=== PATIENT | female | born 1975 | race Caucasian/White ===

== ENCOUNTER 2016-08-22 11:03 | Emergency (ER) | payer OTHER ==
[2016-08-22] MEDS ORDERED: Sodium Chloride 0.9% 10 ML Syringe FLUSH PRN (11:43)
[2016-08-22] MEDS ORDERED: Ketorolac 60 MG/2 ML SDV IM ONE (11:47)
--- NOTE | 2016-08-22 12:06 | EDM.PDOC ---
ED HPI GENERAL MEDICAL PROBLEM - General Chief Complaint: Upper Extremity Injury/Pain Stated Complaint: LWFT SHOULDER PAIN,SOB Time Seen by Provider: 08/22/16 11:45 Source of Information: Reports: Patient History Limitations: Reports: No Limitations - History of Present Illness INITIAL COMMENTS - FREE TEXT/NARRATIVE: 41-year-old female presents for evaluation and treatment of left shoulder pain. Patient reports that the shoulder pain began last night. Reports that the shoulder pain is made worse with movement of the left arm. She also reports associated symptoms of pain with breathing. Patient denies any trauma to the area. Patient denies any chest pain, shortness breath, nausea, vomiting, abdominal pain, lightheadedness, dizziness or syncope. Patient reports that she is a previous IV drug abuser and would like to avoid using narcotics. 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: Neurological History: Reports: Headaches, Chronic Psychiatric History: Reports: Addiction, Depression Other Psychiatric History: ETOH and IV drug addiction, quit 05/2014 Other Immunologic History: Hepatitis C + - Infectious Disease History Infectious Disease History: Reports: Hepatitis C - Past Surgical History GI Surgical History: Reports: Cholecystectomy Social & Family History - Tobacco Use Smoking Status *Q: Former Smoker Years of Tobacco use: 6 Packs/Tins Daily: 1 Used Tobacco, but Quit: Yes Month Tobacco Last Used: 3 years Second Hand Smoke Exposure: Yes - Caffeine Use Caffeine Use: Reports: Coffee - Alcohol Use Days Per Week of Alcohol Use: 0 Number of Drinks Per Day: 0 Total Drinks Per Week: 0 - Recreational Drug Use Recreational Drug Use: Yes Drug Use in Last 12 Months: No Recreational Drug Type: Reports: Marijuana/Hashish, Methamphetamine Recreational Drug Use Frequency: Not Used In Over 6 Months Recreational Drug Last Use: September 19, 2013 Review of Systems - Review of Systems Review Of Systems: See Below Constitutional: Denies: Fever Respiratory: Reports: Other (dyspnea). Denies: Shortness of Breath Cardiovascular: Denies: Chest Pain, Syncope GI/Abdominal: Denies: Abdominal Pain, Nausea, Vomiting Musculoskeletal: Reports: Shoulder Pain (left) Neurological: Denies: Dizziness, Syncope ED EXAM, GENERAL - Physical Exam Exam: See Below Exam Limited By: No Limitations General Appearance: Alert, WD/WN, Mild Distress, Obese Nose: Normal Inspection Throat/Mouth: Normal Inspection, Normal Voice, No Airway Compromise Neck: Normal Inspection, Non-Tender, Full Range of Motion Respiratory/Chest: No Respiratory Distress, Lungs Clear, Normal Breath Sounds Cardiovascular: Normal Peripheral Pulses, Regular Rate, Rhythm, No Murmur GI/Abdominal: Soft, Non-Tender Extremities: Normal Inspection, Non-Tender (minor tenderness to palpation to the inferior medial left scapula), Limited Range of Motion (pain with extension , forward flexion and abduction of the left shoulder) Neurological: Alert, Oriented, Normal Cognition Psychiatric: Normal Affect, Normal Mood Skin Exam: Warm, Dry, Normal Color EKG INTERPRETATION EKG Date: 08/22/16 Time: 11:10 Rhythm: NSR Rate (Beats/Min): 61 Harvest: Normal P-Wave: Present QRS: Normal ST-T: Normal QT: Normal EKG Interpretation Comments: EKG at 11:08 reviewed by myself and Dr. Jase RILEY at [address] changes. Inverted t waves in V2, V3 and aVL EKg at 11:50 reviewed by myself and Dr. Jase RILEY at [address] changes. Inverted t waves in V2, V3 and aVL Course - Vital Signs Last Recorded V/S: Last Vital Signs Temp 36.7 C 08/22/16 11:07 Pulse 65 08/22/16 11:07 Resp 16 08/22/16 11:07 BP Pulse Ox 100 08/22/16 11:07 - Orders/Labs/Meds Labs: Laboratory Tests 08/22/16 08/22/16 08/22/16 Range/Units 12:20 12:20 12:20 WBC 10.66 H (3.98-10.04) K/mm3 RBC 4.31 (3.98-5.22) M/mm3 Hgb 12.6 (11.2-15.7) gm/L Hct 37.9 (34.1-44.9) % MCV 87.9 (79.4-94.8) fl MCH 29.2 (25.6-32.2) pg MCHC 33.2 (32.2-35.5) g/dl RDW Std Deviation 39.9 (36.4-46.3) fL Plt Count 279 (182-369) K/mm3 MPV 10.6 (9.4-12.3) fl Neut % (Auto) 58.2 (34.0-71.1) % Lymph % (Auto) 29.1 (19.3-51.7) % [place] % (Auto) 10.1 (4.7-12.5) % Eos % (Auto) 2.0 (0.7-5.8) Baso % (Auto) 0.3 (0.1-1.2) % Neut # (Auto) 6.21 H (1.56-6.13) K/mm3 Lymph # (Auto) 3.10 (1.18-3.74) K/mm3 [place] # (Auto) 1.08 H (0.24-0.36) K/mm3 Eos # (Auto) 0.21 (0.04-0.36) K/mm3 Baso # (Auto) 0.03 (0.01-0.08) K/mm3 D-Dimer, Quantitative 0.21 (0.19-0.59) mg/L Sodium 139 (136-145) mEq/L Potassium 3.2 L (3.5-5.1) mEq/L Chloride 105 (98-107) mEq/L Carbon Dioxide 27 (21-32) mEq/L Anion Gap 10.2 (5-15) BUN 12 (7-18) mg/dL Creatinine 0.9 (0.55-1.02) mg/dL Est Cr Clr Drug Dosing 84.66 mL/min Estimated GFR (MDRD) > 60 (>60) mL/min BUN/Creatinine Ratio 13.3 L (14-18) Glucose 118 H (74-106) mg/dL Calcium 8.9 (8.5-10.1) mg/dL Total Bilirubin 0.7 (0.2-1.0) mg/dL AST 18 (15-37) U/L ALT 23 (14-59) U/L Alkaline Phosphatase 72 (46-116) U/L CK-MB (CK-2) 0.9 (0-3.6) ng/ml Troponin I < 0.017 (0.00-0.056) ng/mL C-Reactive Protein 0.4 (<1.0) mg/dL Total Protein 7.2 (6.4-8.2) g/dl Albumin 3.5 (3.4-5.0) g/dl Globulin 3.7 gm/dL Albumin/Globulin Ratio 1.0 (1-2) Lipase 123 (73-393) U/L Meds: Medications Discontinued Medications Generic Name Dose Route Start Last Admin Trade Name Freq PRN Reason Stop Dose Admin Ketorolac Tromethamine 60 mg 08/22/16 11:47 08/22/16 11:53 Toradol IM 08/22/16 11:48 60 mg ONETIME ONE Administration Potassium Chloride 20 meq 08/22/16 13:12 08/22/16 13:21 Klor-Con M20 PO 08/22/16 13:13 20 meq ONETIME ONE Administration Sodium Chloride 10 ml 08/22/16 11:43 Saline Flush FLUSH ASDIRECTED PRN Keep Vein Open - Radiology Interpretation Free Text/Narrative:: chest xray 2 view shows no acute intrathoracic process. Reviewed by myself and Dr. Jase Ortiz. - Re-Assessments/Exams Free Text/Narrative Re-Assessment/Exam: 08/22/16 14:40 Physical exam is consistent with a muscle spasm, however with the dyspnea further work up indicated. Labs included the following: WBC slightly elevated at 10.66, hgb is 12.6 and plts are 279 d dimer within normal limits are 0.21 trop within normal limits at <0.017 CKMB within normal limits at 0.9 CRP is 0.4 lipase is normal at 123 sodium is 139, potassium is 3.2 an chloride is 105. Anion gap is 10.2. Glucose is 118 I reviewed the labs, ekg and imaging with the patient. Good pain relief with the toradol. Will prescribe a muscle relaxer and have close follow-up with PCP. Discharge instructions as documented. Departure - Departure Time of Disposition: 14:44 Disposition: Home, Self-Care 01 Condition: Fair Clinical Impression: Muscle spasm - Discharge Information Prescriptions: Orphenadrine [Norflex] 100 mg PO BID #10 tab.er Instructions: Muscle Cramps and Spasms, [id number] Referrals: Jose Manuel Bryant PA-C [Primary Care Provider] - Forms: ED Department Discharge Additional Instructions: Take the Norflex 1 tab twice a day. This medication is for muscle relaxation. It may make you drowsy so do not drive or operate machinery until you know how this medication will affect you. Utilize moist heat to the area. Recommend doing this for 10-15 minutes 3 or 4 times a day. may also try topical products such as icy hot or BenGay. Recommend [id number] Aleve or ibuprofen for pain relief. Follow-up with your primary care provider this week for recheck. Please return to the ER if your symptoms change or worsen.
[2016-08-22] MEDS ORDERED: Potassium Chloride 20 MEQ Tab.ER PO ONE (13:12)
--- NOTE | 2016-08-23 13:36 | CR ---
Chest: Two views of the chest were obtained. Comparison: No previous chest x-ray. Heart size and mediastinum are normal. Lungs are clear. Minimal scoliosis is noted. Impression: 1. Nothing acute is identified on two-view chest x-ray. Diagnostic code #2
== END 2016-08-22 14:52 | disposition home or self-care (01) ==
LOC: JD.ED 11:03
DX: M62.838 Other muscle spasm (principal); Z90.49 Acquired absence of other specified parts of digestive tract; Z87.891 Personal history of nicotine dependence
CPT/HCPCS: 36415; 71020; 80053; 82553; 83690; 84484; 85025; 85379; 86140; 93005; 96372; 99285; A9270; J1885; 99283

== ENCOUNTER 2018-03-23 13:50 | Emergency (ER) | payer OTHER ==
[2018-03-23 14:45] VITALS: BP 127/92
[2018-03-23] MEDS ORDERED: Amoxicillin/Clavulanate K 875-125 MG Tab PO ONE (15:10)
--- NOTE | 2018-03-23 15:16 | EDM.PDOC ---
ED HPI GENERAL MEDICAL PROBLEM - General Chief Complaint: ENT Problem Stated Complaint: DENTAL COMPLAINT Time Seen by Provider: 03/23/18 14:46 Source of Information: Reports: Patient, RN Notes Reviewed History Limitations: Reports: No Limitations - History of Present Illness INITIAL COMMENTS - FREE TEXT/NARRATIVE: Patient is a 42 year old female who presents to the ED for the evaluation of dental pain. The pain is located in both side of her upper jaw. This pain has been present for around 2 months. She did call a dentist, but they would not be able to see her until after Apr 01, and told her that she needed to be treated with antibiotics before they would do any work. She is still able to eat okay. 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: Neurological History: Reports: Headaches, Chronic, Other (See Below) Other Neuro History: blood clot to head that burst Psychiatric History: Reports: Addiction, Depression Other Psychiatric History: ETOH and IV drug addiction, quit 05/2014 Other Immunologic History: Hepatitis C +-had treatment for it - Infectious Disease History Infectious Disease History: Reports: Hepatitis C - Past Surgical History GI Surgical History: Reports: Cholecystectomy Female Surgical History: Reports: Section Social & Family History - Tobacco Use Smoking Status *Q: Former Smoker Used Tobacco, but Quit: Yes Month/Year Tobacco Last Used: 2014 - Caffeine Use Caffeine Use: Reports: Energy Drinks, Soda, Tea - Recreational Drug Use Recreational Drug Use: Yes Other Recreational Drug Type: clean of drugs almost 4 years ED ROS ENT - Review of Systems Review Of Systems: See Below Constitutional: Denies: Fever, Chills HEENT: Reports: Dental Pain. Denies: Throat Pain, Throat Swelling Respiratory: Reports: No Symptoms Cardiovascular: Reports: No Symptoms Endocrine: Reports: No Symptoms GI/Abdominal: Reports: No Symptoms : Reports: No Symptoms Musculoskeletal: Reports: No Symptoms Skin: Reports: No Symptoms Neurological: Reports: No Symptoms Psychiatric: Reports: No Symptoms Hematologic/Lymphatic: Reports: No Symptoms Immunologic: Reports: No Symptoms ED EXAM, ENT - Physical Exam Exam: See Below Text/Narrative:: exam limited to head, neck, and mouth. Exam Limited By: No Limitations General Appearance: Alert, WD/WN, No Apparent Distress Mouth/Throat: Normal Inspection (dentition in poor repair), Normal Oropharynx, Dental Pain (upper left jaw and upper right jaw. mild erythema noted to both sides of gums.), Dental Tenderness. No: Dental Trauma, Trismus Head: Atraumatic, Normocephalic Neck: Normal Inspection, Supple, Non-Tender, Full Range of Motion. No: Lymphadenopathy (L), Lymphadenopathy (R) Course - Vital Signs Last Recorded V/S: Last Vital Signs Temp 97.3 F 03/23/18 14:42 Pulse 61 03/23/18 14:42 Resp 20 03/23/18 14:42 BP 127/92 H 03/23/18 14:42 Pulse Ox 98 03/23/18 14:42 - Orders/Labs/Meds Orders: Active Orders 24 hr Category Date Time Status Amoxicillin/Clavulanate K [Augmentin 875 MG/125 MG] Med 03/23/18 15:10 Once 1 tab PO ONETIME ONE - Re-Assessments/Exams Free Text/Narrative Re-Assessment/Exam: 03/23/18 15:16 Pt presents to the ED for the evaluation of dental pain. Will give 1 does of augmentin in ED and provide her with a prescription. Will recommend she start probiotic with this. Departure - Departure Time of Disposition: 15:17 Disposition: Home, Self-Care 01 Condition: Fair Clinical Impression: Pain, dental - Discharge Information *PRESCRIPTION DRUG MONITORING PROGRAM REVIEWED*: No *COPY OF PRESCRIPTION DRUG MONITORING REPORT IN PATIENT MICAELA: No Referrals: Jose Manuel Bryant PA-C [Primary Care Provider] - Additional Instructions: You have been evaluated in the ED for your dental pain. Recommend taking ibuprofen at least 600mg every 6 hours as needed for pain relief, or 1-2 tabs of Aleve BID for pain relief. Please take the Augmentin 1 tab twice daily for 7 days or until gone. This antibiotic may cause diarrhea, please start taking a probiotic with this. Please follow up with dentist you consulted for definitive management of your tooth pain. Please return to the ED if your symptoms should change or worsen. - My Orders Last 24 Hours: My Active Orders 03/23/18 15:10 Amoxicillin/Clavulanate K [Augmentin 875 MG/125 MG] 1 tab PO ONETIME ONE - Assessment/Plan Last 24 Hours: My Active Orders 03/23/18 15:10 Amoxicillin/Clavulanate K [Augmentin 875 MG/125 MG] 1 tab PO ONETIME ONE
== END 2018-03-23 15:33 | disposition home or self-care (01) ==
LOC: JD.ED 13:50
DX: K08.89 Other specified disorders of teeth and supporting structures (principal); Z90.49 Acquired absence of other specified parts of digestive tract; Z87.891 Personal history of nicotine dependence
CPT/HCPCS: 99283; A9270

== ENCOUNTER 2018-07-28 15:34 | Emergency (ER) | payer OTHER ==
[2018-07-28] MEDS ORDERED: Sodium Chloride 0.9% 10 ML Syringe FLUSH PRN (16:26)
[2018-07-28] MEDS ORDERED: Sodium Chloride 0.9% 1,000 ML IV ONE (16:26)
--- NOTE | 2018-07-28 16:27 | EDM.PDOC ---
ED HPI GENERAL MEDICAL PROBLEM - General Chief Complaint: Abdominal Pain Stated Complaint: RECTAL BLEEDING Time Seen by Provider: 07/28/18 16:08 Source of Information: Reports: Patient History Limitations: Reports: No Limitations - History of Present Illness INITIAL COMMENTS - FREE TEXT/NARRATIVE: Patient is a 43-year-old female who presents ED complaining of right-sided abdominal cramping with concerns of having blood within her stool. She states today after having a BM with wiping there was blood noted on the toilet paper. Blood was bright red with no clots. Bleeding was minimal. States she is unsure if the blood is from the rectum or vagina. Patient states the crampy sensation is consistent with having her menstrual cycle. Patient states she has irregular menses and does not recall when she last had her menstrual cycle. With application of panty liner there has been no blood present. She states with having a bowel movement there has been some blood within the toilet described as bright red. She has been constipated at times. States the stool is formed and hard with no straining required. There's been no nausea/ vomiting, fever, dysuria, hematuria, abnormal vaginal discharge, history of hemorrhoids/anal fissure, ingestion of bad/questional food, antibiotic use, acid reflux, or any additional complaints. She has no history of EGD or colonoscopy. She denies being . She has no history of upper GI/lower GI bleed. Lower Abdomen Pain Score (Numeric/FACES): 2 Headache Pain Score (Numeric/FACES): 8 - Related Data Allergies Allergy/AdvReac Type Severity Reaction Status Date / Time No Known Allergies Allergy Verified 08/22/16 11:14 Home Meds: Home Meds . 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[employer] SOCI[employer]Y History: Neurological History: Reports: Headaches, Chronic, Other (See Below) Other Neuro History: blood clot to head that burst Psychiatric History: Reports: Addiction, Depression Other Psychiatric History: ETOH and IV drug addiction, quit 05/2014 Other Immunologic History: Hepatitis C +-had treatment for it - Infectious Disease History Infectious Disease History: Reports: Hepatitis C - Past Surgical History GI Surgical History: Reports: Cholecystectomy Female Surgical History: Reports: Section Social & Family History - Tobacco Use Smoking Status *Q: Former Smoker Used Tobacco, but Quit: Yes Month/Year Tobacco Last Used: 4 yr - Caffeine Use Caffeine Use: Reports: Energy Drinks, Soda ED ROS GENERAL - Review of Systems Review Of Systems: ROS reveals no pertinent complaints other than HPI. ED EXAM, GI/ABD - Physical Exam Exam: See Below Exam Limited By: No Limitations General Appearance: Alert, WD/WN, No Apparent Distress Ears: Hearing Grossly Normal Nose: Normal Inspection Throat/Mouth: Normal Inspection, Normal Oropharynx, Normal Voice, No Airway Compromise Head: Atraumatic, Normocephalic Neck: Normal Inspection, Supple, Non-Tender, Full Range of Motion Respiratory/Chest: No Respiratory Distress, Lungs Clear, Normal Breath Sounds, No Accessory Muscle Use, Chest Non-Tender Cardiovascular: Normal Peripheral Pulses, Regular Rate, Rhythm, No Murmur GI/Abdominal Exam: Normal Bowel Sounds, Soft, Non-Tender, No Organomegaly, No Distention Rectal (Female) Exam: Normal Exam, Normal Rectal Tone. No: Black Stool, Bloody Stool, Fecal Impaction, Heme - Stool, Heme + Stool, Hemorrhoids, Mass, Perirectal Abscess, Rectal Fissure, Tenderness Back Exam: Normal Inspection. No: CVA Tenderness (L), CVA Tenderness (R) Extremities: Normal Inspection Neurological: Alert, Oriented, CN II-XII Intact, Normal Cognition, No Motor/ Sensory Deficits Psychiatric: Normal Affect, Normal Mood Skin Exam: Warm, Dry, Intact, Normal Color, No Rash Course - Vital Signs Last Recorded V/S: Last Vital Signs Temp 96.9 F 07/28/18 19:05 Pulse 62 07/28/18 19:05 Resp 16 07/28/18 19:05 BP 108/62 07/28/18 19:05 Pulse Ox 98 07/28/18 19:05 - Orders/Labs/Meds Orders: Active Orders 24 hr Category Date Time Status Hemoccult [Fecal Occult Blood Collection] [RC] Care 07/28/18 16:27 Active ASDIRECTED Peripheral IV Care [RC] . DIRECTED Care 07/28/18 16:26 Active Peripheral IV Insertion Adult [OM.PC] Routine Oth 07/28/18 16:26 Ordered Labs: Laboratory Tests 06/02/19 06/02/19 06/02/19 Range/Units 16:45 16:45 16:45 WBC 10.23 H (3.98-10.04) K/mm3 RBC 4.79 (3.98-5.22) M/mm3 Hgb 14.1 D (11.2-15.7) gm/L Hct 43.0 (34.1-44.9) % MCV 89.8 (79.4-94.8) fl MCH 29.4 (25.6-32.2) pg MCHC 32.8 (32.2-35.5) g/dl RDW Std Deviation 42.6 (36.4-46.3) fL Plt Count 303 (182-369) K/mm3 MPV 10.9 (9.4-12.3) fl Neutrophils % (Manual) 53 (40-60) % Band Neutrophils % 0 (0-10) % Lymphocytes % (Manual) 33 (20-40) % Atypical Lymphs % 0 % Monocytes % (Manual) 11 H (2-10) % Eosinophils % (Manual) 3 (0.7-5.8) % Basophils % (Manual) 0 L (0.1-1.2) Platelet Estimate Adequate RBC Morph Comment Normal Sodium (136-145) mEq/L Potassium (3.5-5.1) mEq/L Chloride (98-107) mEq/L Carbon Dioxide (21-32) mEq/L Anion Gap (5-15) BUN (7-18) mg/dL Creatinine (0.55-1.02) mg/dL Est Cr Clr Drug Dosing mL/min Estimated GFR (MDRD) (>60) mL/min BUN/Creatinine Ratio (14-18) Glucose (74-106) mg/dL Calcium (8.5-10.1) mg/dL Total Bilirubin (0.2-1.0) mg/dL AST (15-37) U/L ALT (14-59) U/L Alkaline Phosphatase (46-116) U/L C-Reactive Protein (<1.0) mg/dL Total Protein (6.4-8.2) g/dl Albumin (3.4-5.0) g/dl Globulin gm/dL Albumin/Globulin Ratio (1-2) Lipase (73-393) U/L Urine Color Yellow (Yellow) Urine Appearance Clear (Clear) Urine pH 6.0 (5.0-8.0) Ur Specific [place] 1.020 (1.005-1.030) Urine Protein Negative (Negative) Urine Glucose (UA) Negative (Negative) Urine Ketones Negative (Negative) Urine Occult Blood Trace-intact H (Negative) Urine Nitrite Negative (Negative) Urine Bilirubin Negative (Negative) Urine Urobilinogen 0.2 (0.2-1.0) Ur Leukocyte Esterase Negative (Negative) Urine RBC 5-10 H (0-5) /hpf Urine WBC 0-5 (0-5) /hpf Ur Epithelial Cells 0-5 (0-5) /hpf Urine Bacteria Few (FEW) /hpf Urine Mucus Few (FEW) /hpf Urine HCG, Qual Negative (NEGATIVE) 07/28/18 Range/Units 16:45 WBC (3.98-10.04) K/mm3 RBC (3.98-5.22) M/mm3 Hgb (11.2-15.7) gm/L Hct (34.1-44.9) % MCV (79.4-94.8) fl MCH (25.6-32.2) pg MCHC (32.2-35.5) g/dl RDW Std Deviation (36.4-46.3) fL Plt Count (182-369) K/mm3 MPV (9.4-12.3) fl Neutrophils % (Manual) (40-60) % Band Neutrophils % (0-10) % Lymphocytes % (Manual) (20-40) % Atypical Lymphs % % Monocytes % (Manual) (2-10) % Eosinophils % (Manual) (0.7-5.8) % Basophils % (Manual) (0.1-1.2) Platelet Estimate RBC Morph Comment Sodium 141 (136-145) mEq/L Potassium 3.9 (3.5-5.1) mEq/L Chloride 104 (98-107) mEq/L Carbon Dioxide 28 (21-32) mEq/L Anion Gap 12.9 (5-15) BUN 9 (7-18) mg/dL Creatinine 0.6 (0.55-1.02) mg/dL Est Cr Clr Drug Dosing 128.95 mL/min Estimated GFR (MDRD) > 60 (>60) mL/min BUN/Creatinine Ratio 15.0 (14-18) Glucose 90 (74-106) mg/dL Calcium 8.7 (8.5-10.1) mg/dL Total Bilirubin 0.4 (0.2-1.0) mg/dL AST 24 (15-37) U/L ALT 31 (14-59) U/L Alkaline Phosphatase 75 (46-116) U/L C-Reactive Protein 0.2 (<1.0) mg/dL Total Protein 7.2 (6.4-8.2) g/dl Albumin 3.8 (3.4-5.0) g/dl Globulin 3.4 gm/dL Albumin/Globulin Ratio 1.1 (1-2) Lipase 143 (73-393) U/L Urine Color (Yellow) Urine Appearance (Clear) Urine pH (5.0-8.0) Ur Specific [place] (1.005-1.030) Urine Protein (Negative) Urine Glucose (UA) (Negative) Urine Ketones (Negative) Urine Occult Blood (Negative) Urine Nitrite (Negative) Urine Bilirubin (Negative) Urine Urobilinogen (0.2-1.0) Ur Leukocyte Esterase (Negative) Urine RBC (0-5) /hpf Urine WBC (0-5) /hpf Ur Epithelial Cells (0-5) /hpf Urine Bacteria (FEW) /hpf Urine Mucus (FEW) /hpf Urine HCG, Qual (NEGATIVE) Meds: Medications Discontinued Medications Generic Name Dose Route Start Last Admin Trade Name Freq PRN Reason Stop Dose Admin Sodium Chloride 1,000 mls @ 250 mls/hr 07/28/18 16:26 07/28/18 16:50 Normal Saline IV 07/28/18 20:25 250 mls/hr ONETIME ONE Administration Sodium Chloride 10 ml 07/28/18 16:26 07/28/18 16:45 Saline Flush FLUSH 10 ml ASDIRECTED PRN Administration Keep Vein Open - Re-Assessments/Exams Free Text/Narrative Re-Assessment/Exam: On exam patient has no abdominal pain. Vital signs are stable. She is afebrile. Labs to be obtained. Would like to perform a digital rectal exam to test the stool for blood. Patient has deferred and will provide a stool sample. Labs reviewed CBC was essentially normal. CMP was normal. CRP normal. Lipase normal. UA indicated trace intact blood with urine rbc's 5-10. Patient was unable to provide a stool sample. Digital rectal exam was performed with female nurse present. No stool within the rectal vault. No blood present. No findings concerning for GI bleed. Differential GI bleed/menstrual. Not completely sure if GI bleed or menstrual cycle. She has irregular menstrual cycles varying degrees of pattern and amount bleeding. I suspect this is related to her menstrual cycle since no findings of blood within rectal vault. I will discharge patient home with instructions to return if she develops any obvious GI bleed. Return precautions were discussed with the patient. She had no further questions or concerns and agreed with plan. Labs reviewed: CBC was essentially normal. She panel was normal. CRP normal. Lipase normal. UA indicated trace intact blood with urine rbc's 5-10. X-ray of the abdomen revealed nonspecific air and stool pattern. Patient was unable to provide a stool sample. Digital rectal exam was performed with female nurse present. No stool within the rectal vault. No blood present. No findings concerning for GI bleed. It is not completely sure if this is related to a GI bleed or menstrual cycle. She has irregular menstrual cycles and states with varying degree of bleeding. I will discharge patient home with instructions to return if she develops any obvious GI bleed. Return precautions were discussed with the patient. She had no further questions or concerns and agreed with plan. Departure - Departure Time of Disposition: 18:39 Disposition: Home, Self-Care 01 Condition: Good Clinical Impression: GI bleed Qualifiers: GI bleed type/associated pathology: unspecified gastrointestinal hemorrhage type Qualified Code(s): K92.2 - Gastrointestinal hemorrhage, unspecified - Discharge Information Instructions: Gastrointestinal Bleeding, Abdominal Pain, Adult, [id number] Referrals: Jose Manuel Bryant PA-C [Primary Care Provider] - Forms: ED Department Discharge Additional Instructions: As discussed suspect the bleeding is from her vagina since no blood present within the rectal vault with digital rectal exam. All lab work is essentially normal. UA did indicate some blood present. Please see her PCP in the next week for reevaluation to ensure resolution. In addition if you develop any new or worsening symptoms please return to the ED for reevaluation. - My Orders Last 24 Hours: My Active Orders 07/28/18 16:26 Peripheral IV Care [RC] . DIRECTED Peripheral IV Insertion Adult [OM.PC] Routine 07/28/18 16:27 Hemoccult [Fecal Occult Blood Collection] [RC] ASDIRECTED - Assessment/Plan Last 24 Hours: My Active Orders 07/28/18 16:26 Peripheral IV Care [RC] . DIRECTED Peripheral IV Insertion Adult [OM.PC] Routine 07/28/18 16:27 Hemoccult [Fecal Occult Blood Collection] [RC] ASDIRECTED
[2018-07-28 19:08] VITALS: BP 108/62
--- NOTE | 2018-07-29 10:16 | CR ---
Abdomen: Supine and upright views of the abdomen or obtained. Comparison: Prior abdominal ultrasound of the right upper quadrant dated 04/27/15, no previous x-ray. Surgical clips are seen from prior cholecystectomy. Numerous calcifications are noted within the pelvis which are felt compatible with phleboliths. Single surgical clip is seen within the right lower abdomen next to the cecum. Bowel gas pattern appears normal. No free air is seen. Bony structures appear within normal limits for the patient's age. Impression: 1. Incidental findings as noted above. Diagnostic code #2
== END 2018-07-28 19:10 | disposition home or self-care (01) ==
LOC: JD.ED 15:34
DX: K92.2 Gastrointestinal hemorrhage, unspecified (principal); F32.9 Major depressive disorder, single episode, unspecified; Z87.891 Personal history of nicotine dependence
CPT/HCPCS: 36415; 74019; 80053; 81001; 81025; 83690; 85007; 85027; 86140; 96360; 96361; 99284; J7040; 99283

== ENCOUNTER 2023-01-10 14:22 | Emergency (ER) | payer OTHER ==
[2023-01-10] MEDS ORDERED: Sodium Chloride 0.9% 10 ML Syringe FLUSH PRN (14:42)
[2023-01-10] MEDS ORDERED: Iopamidol 612 MG/ML 100 ML Bottle IVPUSH ONE (14:55)
[2023-01-10] MEDS ORDERED: Sodium Chloride 0.9% 10 ML Syringe FLUSH ONE (14:55)
[2023-01-10] MEDS ORDERED: Sodium Chloride 0.9% 1,000 ML IV SCH (15:00)
[2023-01-10 15:29] LABS: BLOOD UREA NITROGEN,BUN 13 mg/dL (7-18); C-REACTIVE PROTEIN <0.2 mg/dL (<1.0)
[2023-01-10 15:35] LABS: APPEARANCE,URINE SLT CLOUDY (Clear); BILIRUBIN,URINE NEGATIVE (Negative); COLOR,URINE YELLOW (Yellow); GLUCOSE,URINE NEGATIVE (Negative); KETONES,URINE NEGATIVE (Negative); LEUKOCYTE ESTERASE,URINE NEGATIVE (Negative); NITRITE,URINE NEGATIVE (Negative); OCCULT BLOOD,URINE NEGATIVE (Negative); PH,URINE 5.5 (5.0-8.0); PROTEIN,URINE NEGATIVE (Negative); UROBILINOGEN,URINE 0.2 (0.2-1.0)
[2023-01-10 15:51] LABS: BASOPHILS PERCENT AUTO 0.3 % (0.0-1.0); EOSINOPHILS ABSOLUTE AUTO 0.1 K/mm3 (0.0-0.4); EOSINOPHILS PERCENT AUTO 1.4 % (0.0-6.0); HEMATOCRIT 38.4 % (37.0-47.0); HEMOGLOBIN 12.5 gm/dl (12.0-16.0); IMMATURE GRAN ABSOLUTE AUTO 0.03 K/mm3 (0.00-0.05); IMMATURE GRAN PERCENT AUTO 0.3 % (0.0-0.4); LYMPHOCYTES ABSOLUTE AUTO 2.9 K/mm3 (1.0-4.8); LYMPHOCYTES PERCENT AUTO 31.6 % (24.0-44.0); MEAN CORPUSCULAR HEMOGLOBIN 29.7 pg (28.0-32.0); MEAN CORPUSCULAR HGB CONC 32.6 g/dl (32.0-36.0); MEAN CORPUSCULAR VOLUME 91.2 fl (83.0-99.0); MEAN PLATELET VOLUME 10.4 fl (9.4-12.3); MONOCYTES PERCENT AUTO 10.8 % (0.0-8.0); NEUTROPHILS ABSOLUTE AUTO 5.2 K/mm3 (1.8-7.7); NEUTROPHILS PERCENT AUTO 55.6 % (41.0-71.0); PLATELET COUNT,PLT 238 K/mm3 (150-400); RED BLOOD CELL COUNT 4.21 M/mm3 (4.10-5.30); WHITE BLOOD CELL COUNT,WBC 9.27 K/mm3 (3.9-11.3)
[2023-01-10 16:11] LABS: ALANINE AMINOTRANSFERASE,ALT 19 U/L (14-59); ALBUMIN 3.3 g/dl (3.4-5.0); ALKALINE PHOSPHATASE 48 U/L (46-116); ANION GAP 11.6 (5-15); ASPARTATE AMNIOTRANSFERASE,AST 17 U/L (15-37); BILIRUBIN TOTAL 0.5 mg/dL (0.2-1.0); BUN/CREATININE RATIO 21.7 (14-18); CALCIUM 8.6 mg/dL (8.5-10.1); CARBON DIOXIDE,CO2 29 mEq/L (21-32); CHLORIDE,CL 102 mEq/L (98-107); CREATININE 0.6 mg/dL (0.55-1.02); EST CRCL DRUG DOSING (CG) 119.44 mL/min; ESTIMATED GFR 113 mL/min (>60); GLUCOSE RANDOM 82 mg/dL (70-99); MAGNESIUM 1.5 mg/dL (1.8-2.4); POTASSIUM,K 3.6 mEq/L (3.5-5.1); PROTEIN TOTAL,TP 6.6 g/dl (6.4-8.2); SODIUM,NA 139 mEq/L (136-145)
[2023-01-10] MEDS ORDERED: Magnesium Oxide 400 MG Tab PO ONE (16:16)
[2023-01-10 16:55] VITALS: BP 115/85; PULSE 78
== END 2023-01-10 16:50 | disposition home or self-care (01) ==
LOC: JD.ED 14:22
DX: K57.90 Diverticulosis of intestine, part unspecified, without perforation or abscess without bleeding (principal)
CPT/HCPCS: 36415; 74177; 80053; 81003; 83735; 85025; 86140; 99284; A9270; J3490; J7030; Q9967

== ENCOUNTER 2023-01-19 18:48 | Emergency (ER) | payer OTHER ==
[2023-01-19] MEDS ORDERED: Prochlorperazine 10 MG/2 ML SDV IM ONE (19:24)
[2023-01-19] MEDS ORDERED: diphenhydrAMINE 50 MG/ML SDV IM ONE (19:24)
[2023-01-19] MEDS ORDERED: Ketorolac 60 MG/2 ML SDV IM ONE (19:24)
[2023-01-19] MEDS ORDERED: Ketorolac 30 MG/ML SDV IVPUSH ONE (19:59)
[2023-01-19] MEDS ORDERED: diphenhydrAMINE 50 MG/ML SDV IVPUSH ONE (19:59)
[2023-01-19] MEDS ORDERED: Prochlorperazine 10 MG/2 ML SDV IVPUSH ONE (19:59)
[2023-01-19] MEDS ORDERED: Sodium Chloride 0.9% 1,000 ML IV ONE (20:00)
[2023-01-19 20:29] VITALS: BP 139/84; PULSE 74
[2023-01-19 21:00] LABS: CORONAVIRUS COVID-19 NAA NEGATIVE (NEGATIVE); INFLUENZA A NAA NEGATIVE (NEGATIVE); RESPIRATORY SYNCYTIAL VIR NAA NEGATIVE (NEGATIVE)
== END 2023-01-19 21:20 | disposition home or self-care (01) ==
LOC: JD.ED 18:48
DX: G43.909 Migraine, unspecified, not intractable, without status migrainosus (principal); Z86.16 Personal history of COVID-19; Z87.891 Personal history of nicotine dependence; Z90.49 Acquired absence of other specified parts of digestive tract; Z20.822 Contact with and (suspected) exposure to COVID-19
CPT/HCPCS: 0241U; 96361; 96374; 96375; 99284-25; J0780; J1200; J1885; J7030